=== PATIENT | male | born 1975 | race Two or more races ===

== ENCOUNTER 2025-01-29 09:41 | Inpatient (IN) | payer MEDICAID, OTHER ==
[~2025-01-29] VITALS: Ht 170.2 cm; Wt 70.6 kg
--- NOTE | 2025-01-29 10:02 | ED.PDOC ---
History of Present Illness HPI Comments 49 y.o male presents to the ED for admission to undergo surgery for a left arm fracture. Patient reports about one month ago had a mechanical slip and fall and landed on his left arm. Patient was sent by Dr. Bnun to be admitted to get surgery done on 02/02/25. Patient denies any pain at this time. Chief Complaint: Upper Extremity Time Seen by MD: 09:50 Reviewed Notes: Nurses Notes, Medications, Allergies Allergies: Coded Allergies: NO KNOWN ALLERGIES (Unverified , 01/29/25) Information Source: Patient Mode of Arrival: Wheelchair Severity: None Timing: Hours Duration: Since onset Past Medical History PAST MEDICAL HISTORY: Denies Surgical History (Other): left leg Family History Family History: Reviewed,noncontributory to illness Social History Smoker: Non-Smoker Alcohol: Denies ETOH Use Drugs: Denies Drug Use Lives In: Home Constitutional: denies: chills, diaphoresis, fatigue, fever, malaise, sweats, weakness, others EENTM: denies: blurred vision, double vision, ear bleeding, ear discharge, ear drainage, ear pain, ear ringing, eye pain, eye redness, hearing loss, mouth pain, mouth swelling, nasal discharge, nose bleeding, nose congestion, nose pain, photophobia, tearing, throat pain, throat swelling, voice changes, others Respiratory: denies: cough, hemoptysis, orthopnea, SOB at rest, shortness of breath, SOB with excertion, stridor, wheezing, others Cardiovascular: denies: chest pain, dizzy spells, diaphoresis, Dyspnea on exertion, edema, irregular heart beat, left arm pain, lightheadedness, palpitations, PND, syncope, others Gastrointestinal: denies: abdomen distended, abdominal pain, blood streaked bowels, constipated, diarrhea, dysphagia, difficulty swallowing, hematemesis, melena, nausea, poor appetite, poor fluid intake, rectal bleeding, rectal pain, vomiting, others Genitourinary: denies: burning, dysuria, flank pain, frequency, hematuria, incontinence, penile discharge, penile sore, pain, testicle pain, testicle sw elling, urgency, others Neurological: denies: dizziness, fainting, headache, left sided numbness, left sided weakness, numbness, paresthesia, pre-existing deficit, right sided numbness, right sided weakness, seizure, speech problems, tingling, tremors, weakness, others Musculoskeletal: denies: back pain, gout, joint pain, joint swelling, muscle pain, muscle stiffness, neck pain, others Integumetry: denies: bruises, change in color, change in hair/nails, dryness, laceration, lesions, lumps, rash, wounds, others Allergic/Immunocompromised: denies: Difficulty Healing, Frequent Infections, Hives, Itching, others Hematologic/Lymphatic: denies: anemia, blood clots, easy bleeding, easy bruising, swollen glands, others Endocrine: denies: excessive hunger, excessive sweating, excessive thirst, excessive urination, flushing, intolerance to cold, intolerance to heat, unexplained weight gain, unexplained weight loss, others Psychiatric: denies: anxiety, bipolar disorder, depression, hopeless, panic disorder, schizophrenia, sleepless, suicidal, others All Other Systems: Reviewed and Negative Physical Exam General Appearance: Moderate Distress HEENT: Normal ENT Inspection, Pharynx Normal, TMs Normal Neck: Full Range of Motion, Non-Tender, Normal, Normal Inspection Respiratory: Chest Non-Tender, Lungs Clear, No Accessory Muscle Use, No Respiratory Distress, Normal Breath Sounds Cardiovascular: No Edema, No JVD, No Murmur, No Gallop, Normal Peripheral Pulses, Regular Rate/Rhythm Breast Exam: Deferred Gastrointestinal: No Organomegaly, Non Tender, No Pulsatile Mass, Normal Bowel Sounds, Soft Genitalia: Deferred Pelvic: Deferred Rectal: Deferred Extremities: Other (Left lower extremity halo) Musculoskeletal : Apperance: Normal Neurologic: Alert, No Motor Deficits, No Sensory Deficits Cerebellar Function: NOT DONE Reflexes: NOT DONE Skin: Dry, Normal Color, Warm Peripheral Pulses: 3+ Radial (R), 3+ Radial (L) Lymphatic: No Adenopathy Was a procedure done? Was a procedure done?: No Differential Dx Considerations may include: Muscle strain X-Ray, Labs, Meds, VS Vital Signs Date Time Temp Pulse Resp B/P (MAP) Pulse Ox O2 Delivery O2 Flow Rate FiO2 01/29/25 10:21 97.9 78 18 127/95 (106) 98 97.9 01/29/25 10:21 78 18 98 Room Air 01/29/25 09:43 97.6 72 16 145/99 97 97.6 Lab Test 01/29/25 10:15 Range/Units White Blood Count 6.7 4.4-10.8 10^3/uL Red Blood Count 4.81 4.5-5.90 10^6/uL Hemoglobin 14.1 13.5-17.5 g/dL Hematocrit 41.2 41.0-53.0 % Mean Corpuscular Volume 85.7 80.0-100.0 fL Mean Corpuscular Hemoglobin 29.4 28.0-32.0 pg Mean Corpuscular Hemoglobin Concent 34.3 32.0-36.0 g/dL Red Cell Distribution Width 14.9 H 11.8-14.3 % Platelet Count 358 140-450 10^3/uL Mean Platelet Volume 6.7 L 6.9-10.8 fL Neutrophils (%) (Auto) 55.4 37.0-80.0 % Lymphocytes (%) (Auto) 37.1 10.0-50.0 % Monocytes (%) (Auto) 3.9 0.0-12.0 % Eosinophils (%) (Auto) 2.8 0.0-7.0 % Basophils (%) (Auto) 0.8 0.0-2.0 % Neutrophils # (Auto) 3.7 1.6-8.6 10 ^3/uL Lymphocytes # (Auto) 2.5 0.4-5.4 10 ^3/uL Monocytes # (Auto) 0.3 0-1.3 10 ^3/uL Eosinophils # (Auto) 0.2 0-0.8 10 ^3/uL Basophils # (Auto) 0.1 0-0.2 10 ^3/uL Nucleated Red Blood Cells 0.0 % Prothrombin Time 10.9 9.3-11.8 sec Prothrombin Time INR 1.03 0.9-1.15 Activated Partial Thromboplast Time 28.5 24.5-34.5 SEC Sodium Level 141 136-145 mmol/L Potassium Level 4.0 3.5-5.1 mmol/L Chloride Level 104 98-107 mmol/L Carbon Dioxide Level 26 20-31 mmol/L Anion Gap 11 5-15 Blood Urea Nitrogen 12 9-23 mg/dL Creatinine 0.88 0.700-1.30 mg/dL Glomerular Filtration Rate Calc 105 >90 mL/min BUN/Creatinine Ratio 13.6 10.0-20.0 Serum Glucose 111 H 74-106 mg/dL Calcium Level 9.5 8.7-10.4 mg/dL Patient alert. He is here for fixation of the left forearm. Vitals stable. Answering questions. WBC within normal limits. Hemoglobin within normal limits. Orthopedic surgeon wanted to revise the bone. Continue monitoring. Time of 1ST Reevaluation: 10:02 Reevaluation 1ST: Unchanged Patient Education/Counseling: Diagnosis, Treatment, Prognosis Family Education/Counseling: No Family Present SEPSIS Sepsis Screen Date sepsis recognized/suspect: Jan 29, 2025 Time Sepsis recognized/suspect: 942 Recent Procedure: No On Antibiotic Therapy: No Respiratory Rate >20: No Heart Rate >90: No Temp<36 C (96.8 F) or >38.3 C: No SBP <90 or MAP <65 mmHG: No New Acute Mental Status Change: No Is the patient on CPAP, BIPAP,: No Vital Signs Date Time Temp Pulse Resp B/P (MAP) Pulse Ox O2 Delivery O2 Flow Rate FiO2 01/29/25 10:21 97.9 78 18 127/95 (106) 98 97.9 01/29/25 10:21 78 18 98 Room Air 01/29/25 09:43 97.6 72 16 145/99 97 97.6 Laboratory Tests Test 01/29/25 10:15 White Blood Count 6.7 10^3/uL (4.4-10.8) Departure 1 Departure Time of Disposition: 11:11 Impression: Primary Impression: Forearm fracture Qualified Codes: S52.92XA - Unspecified fracture of left forearm, initial encounter for closed fracture Disposition: ADMITTED INPATIENT Admit to: Med Surg Condition: Guarded Critical Care Note Critical Care Time?: No Stability Stability form required: No I personally scribed for SHELLY AZEVEDO MD ([email or web address]) on 01/29/25 at 10:02. Electronically submitted by Diane Figueroa ([facility]). SHELLY AZEVEDO MD Jan 29, 2025 10:02
[2025-01-29 10:31] LABS: Hematocrit 41.2 % (41.0-53.0); Hemoglobin 14.1 g/dL (13.5-17.5); Mean Corpuscular Hemoglobin 29.4 pg (28.0-32.0); Mean Corpuscular Volume 85.7 fL (80.0-100.0); Nucleated Red Blood Cells % 0.0 %
[2025-01-29 10:34] LABS: Chloride 104 mmol/L (98-107); Potassium 4.0 mmol/L (3.5-5.1); Sodium 141 mmol/L (136-145)
[2025-01-29 10:35] LABS: Anion Gap 11 (5-15); Carbon Dioxide 26 mmol/L (20-31)
[2025-01-29 10:36] LABS: Calcium 9.5 mg/dL (8.7-10.4)
[2025-01-29 10:41] LABS: BUN/Creatinine Ratio 13.6 (10.0-20.0); Blood Urea Nitrogen 12 mg/dL (9-23); Glucose 111 mg/dL (74-106)
[2025-01-29 11:05] LABS: INR 1.03 (0.9-1.15); Partial Thromboplastin Time 28.5 SEC (24.5-34.5); Prothrombin Time 10.9 sec (9.3-11.8)
[2025-01-29] MEDS ORDERED: HYDROmorphone HCL 2 MG/ML VL/or syr IV PRN (13:15)
--- NOTE | 2025-01-29 13:18 | DVHHP2 ---
History of Present Illness History of Present Illness Patient is 49-year-old male who came to the hospital for evaluation of his left wrist fracture. As per patient he was getting out of bathroom, fell down on his left arm on 10 January.. Patient came to the hospital for further evaluation requiring possible surgery on left wrist for left wrist fracture. Past medical history: None Surgical history: Left foot surgery on July 13, 2024 Family history: Noncontributory Social history: Noncontributory Allergies: Denies Home medication: Patient does not take any medication Review of Systems Constitutional: No: Fever, Chills, Sweats, Weakness, Malaise, Other Eyes: No: Pain, Vision change, Conjunctivae inflammation, Eyelid inflammation, Other, Redness ENT: No: Ear pain, Ear discharge, Nose pain, Nose discharge, Nose congestion, Mouth pain, Mouth swelling, Throat pain, Throat swelling, Other Respiratory: No: Cough, Dry, Shortness of breath, SOB with excertion, Wheezing, Hemoptysis, Pleuritic Pain, Sputum, Wheezing, Other Cardiovascular: No: Chest Pain, Palpitations, Orthopnea, Paroxysmal Noc. Dyspnea, Edema, Lt Headedness, Other Gastrointestinal: No: Nausea, Vomiting, Abdominal Pain, Diarrhea, Constipation, Melena, Hematochezia, Other Genitourinary: No Dysuria, No Frequency, No Incontinence, No Hematuria, No Retention, No Other Musculoskeletal: hand pain, leg pain Skin: No: Rash, Lesions, Jaundice, Bruising, Other Neurological: No: Weakness, Numbness, Incoordination, Change in speech, Confusion, Seizures, Other Allergies: Coded Allergies: NO KNOWN ALLERGIES (Unverified , 01/29/25) Medications Current Medications Medications Dose Ordered Sig/Marc Route Start Time Stop Time Status Last Admin Dose Admin Acetaminophen/ Hydrocodone Bitart 1 tab Q4HP PRN PO 01/29/25 13:15 UNV Hydromorphone HCl 0.5 mg Q4HP PRN IV 01/29/25 13:15 UNV Pantoprazole Sodium 40 mg DAILY IV 01/30/25 10:00 UNV Exam Vital Signs Vital Signs Date Time Temp Pulse Resp B/P (MAP) Pulse Ox O2 Delivery O2 Flow Rate FiO2 01/29/25 10:21 97.9 78 18 127/95 (106) 98 97.9 01/29/25 10:21 Room Air Exam General Appearance: Cooperative. Well developed. Well nourished. NAD Head Exam: Normal inspection Neck Exam: Normal inspection. Non-tender. Normal alignment Pulmonary/Respiratory: Chest non-tender. Clear bilateral breath sounds Cardiovascular/Chest: Regular rate and rhythm. No murmurs. No JVD. Peripheral Pulses: 2+ Radial (R). 2+ Radial (L). 2+ Pedal (R). 2+ Pedal (L) Abdominal Exam: Normal bowel sounds. Soft. Nontender. No hepatospenomegaly. No masses Ankle Exam: Negative ankle edema Lower extremities: Left foot with multiple she had rods for fixation of food. Left wrist swollen with tenderness, limited range of motion of left wrist Neuro/Mental Status: A&O x4. Coherent Thoughts/Psych: Normal thought pattern. Appropriate mood and affect. Good judgement and insight Appearance: In no acute distress Skin Exam: Normal inspection. Normal color. Warm. Dry Labs/Xrays Labs Test 01/29/25 10:15 Range/Units White Blood Count 6.7 4.4-10.8 10^3/uL Red Blood Count 4.81 4.5-5.90 10^6/uL Hemoglobin 14.1 13.5-17.5 g/dL Hematocrit 41.2 41.0-53.0 % Mean Corpuscular Volume 85.7 80.0-100.0 fL Mean Corpuscular Hemoglobin 29.4 28.0-32.0 pg Mean Corpuscular Hemoglobin Concent 34.3 32.0-36.0 g/dL Red Cell Distribution Width 14.9 H 11.8-14.3 % Platelet Count 358 140-450 10^3/uL Mean Platelet Volume 6.7 L 6.9-10.8 fL Neutrophils (%) (Auto) 55.4 37.0-80.0 % Lymphocytes (%) (Auto) 37.1 10.0-50.0 % Monocytes (%) (Auto) 3.9 0.0-12.0 % Eosinophils (%) (Auto) 2.8 0.0-7.0 % Basophils (%) (Auto) 0.8 0.0-2.0 % Neutrophils # (Auto) 3.7 1.6-8.6 10 ^3/uL Lymphocytes # (Auto) 2.5 0.4-5.4 10 ^3/uL Monocytes # (Auto) 0.3 0-1.3 10 ^3/uL Eosinophils # (Auto) 0.2 0-0.8 10 ^3/uL Basophils # (Auto) 0.1 0-0.2 10 ^3/uL Nucleated Red Blood Cells 0.0 % Prothrombin Time 10.9 9.3-11.8 sec Prothrombin Time INR 1.03 0.9-1.15 Activated Partial Thromboplast Time 28.5 24.5-34.5 SEC Sodium Level 141 136-145 mmol/L Potassium Level 4.0 3.5-5.1 mmol/L Chloride Level 104 98-107 mmol/L Carbon Dioxide Level 26 20-31 mmol/L Anion Gap 11 5-15 Blood Urea Nitrogen 12 9-23 mg/dL Creatinine 0.88 0.700-1.30 mg/dL Glomerular Filtration Rate Calc 105 >90 mL/min BUN/Creatinine Ratio 13.6 10.0-20.0 Serum Glucose 111 H 74-106 mg/dL Calcium Level 9.5 8.7-10.4 mg/dL SEPSIS Sepsis Screen Date sepsis recognized/suspect: Jan 29, 2025 Time Sepsis recognized/suspect: 09 Recent Procedure: No On Antibiotic Therapy: No Respiratory Rate >20: No Heart Rate >90: No Temp<36 C (96.8 F) or >38.3 C: No SBP <90 or MAP <65 mmHG: No New Acute Mental Status Change: No Is the patient on CPAP, BIPAP,: No Physician Orders Admit (01/29/25 13:12) Code Status (01/29/25 13:12) Vital Signs .PER UNIT PROTOCOL (01/29/25 13:12) Review Orders With Adm.Md (01/29/25 13:12) Notify Md Of Changes From Base (01/29/25 13:12) Advance Directive (01/29/25 13:12) Urinalysis (01/29/25 13:12) Patient Condition (01/29/25 13:12) Allergies (01/29/25 13:12) Hydrocodone-Acet 5/325mg Tab ([place] 5/32 (01/29/25 13:15) Hydromorphone Injection (Dilaudid Inject (01/29/25 13:15) Drug Screen (01/29/25 13:12) Hemoglobin A1c (01/29/25 13:12) Npo After Midnight (01/29/25 13:12) Npo (Nothing By Mouth) Diet (01/30/25 Breakfast) Thyroid Stimulating Hormone (01/29/25 13:12) Electrocardigram (01/29/25 13:12) L Wrist 3+ View Xray (01/29/25 13:16) *Consult Dr. Alen Acosta (01/29/25 13:16) Pantoprazole (Protonix) (01/30/25 10:00) Pantoprazole Tablet (Protonix Tablet) (01/29/25 13:30) Vital Signs Date Time Temp Pulse Resp B/P (MAP) Pulse Ox O2 Delivery O2 Flow Rate FiO2 01/29/25 10:21 97.9 78 18 127/95 (106) 98 97.9 01/29/25 10:21 78 18 98 Room Air 01/29/25 09:43 97.6 72 16 145/99 97 97.6 Laboratory Tests Test 01/29/25 10:15 White Blood Count 6.7 10^3/uL (4.4-10.8) Assessment/Plan Assessment/Plan Mildly displaced distal radius and ulna styloid fracture BMI 25.0 kg/meters squared Recent history of tibial fracture. Status post surgery. July 2024 Plan/recommendation -left wrist x-ray: Mildly displaced distal radius and ulna styloid fracture. -orthopedic consultation -pain management -preop clearance -NPO after midnight -PUD prophylaxis with Protonix Goals of care discussed greater than 23 hours, full code status Plan discussed with Dr. Gutierrez Plan discussed with: Patient, Other My Orders Orders - JC HUITRON RESIDENT Procedure Category Date Status Time Admit ADMIT 01/29/25 Transmitted 13:12 Code Status CODE 01/29/25 Transmitted 13:12 Vital Signs BRANDEN 01/29/25 In Process 13:12 Review Orders With BRANDEN 01/29/25 In Process Adm. 13:12 Notify Of Changes BRANDEN 01/29/25 In Process From Base 13:12 Advance Directive BRANDEN 01/29/25 In Process 13:12 Urinalysis LAB 01/29/25 Logged 13:12 Patient Condition ORDERS 01/29/25 Transmitted 13:12 Allergies BRANDEN 01/29/25 In Process 13:12 Hydrocodone-Acet PHA 01/29/25 Logged 5/325mg Tab ([place] 13:15 Hydromorphone PHA 01/29/25 Logged Injection (Dilaudid 13:15 Drug Screen LAB 01/29/25 Logged 13:12 Hemoglobin A1c LAB 01/29/25 Logged 13:12 Npo After Midnight BRANDEN 01/29/25 In Process 13:12 Npo (Nothing By DIET 01/30/25 Transmitted Mouth) Diet Breakfast Thyroid Stimulating LAB 01/29/25 Logged Hormone 13:12 Electrocardigram EKG 01/29/25 Logged 13:12 L Wrist 3+ View Xray XY 01/29/25 Logged 13:16 *Consult Dr. Lowry CONS 01/29/25 Transmitted Dave 13:16 Pantoprazole PHA 01/30/25 Transmitted (Protonix) 10:00 Pantoprazole Tablet PHA 01/29/25 Transmitted (Protonix Tablet) 13:30 Date of Service: Jan 29, 2025 Billing Provider: VARUN GUTIERREZ MD Common Visit Codes: [id number] INP/OBS CARE (HIGH) Secondary Visit Codes: [id number] CARE PLAN 30 MINUTES JC HUITRON RESIDENT Jan 29, 2025 13:18
[2025-01-29 13:27] VITALS: PULSE 80; RESP 18; O2SAT 96
[2025-01-29] MEDS: PANTOPRAZOLE 40 MG TAB PO ONE (13:42)
--- NOTE | 2025-01-29 14:01 | DVH ---
XY L WRIST 3+ VIEW XRAY, INDICATION: fracture TECHNICAL DATA: Frontal ,oblique, and lateral views were obtained of the left wrist. COMPARISON: XR WRIST COMPLETE LT on DOS: 01/10/25 FINDINGS: Mildly displaced distal radius and ulna styloid fracture. Joint spaces are maintained. Alignment is a natomic. Ulnar variance is positive. Soft tissues are within normal limits. A splint limits details. IMPRESSION: Mildly displaced distal radius and ulna styloid fracture.
[2025-01-29 16:32] LABS: INR 1.05 (0.9-1.15); Partial Thromboplastin Time 29.5 SEC (24.5-34.5); Prothrombin Time 11.1 sec (9.3-11.8)
[2025-01-29 21:24] LABS: Urine Protein, UAD Negative (Negative)
--- NOTE | 2025-01-29 21:24 | DVH ---
CLINICAL INDICATION: fracture TECHNIQUE: XY L ANKLE 3 VIEW Comparison: None FINDINGS/IMPRESSION: : Evaluation is limited due to external hardware limiting evaluation. There are 2 partially threaded screws through the talus. Comminuted fracture of the distal fibula and mildly displaced fracture of the distal tibia. Bony demineralization. Ankle mortise appears intact.
[2025-01-29 21:25] LABS: Amphetamine Screen, Urine Neg (NEGATIVE); Barbiturate Scree,Urine Neg (NEGATIVE); Benzodiazephine Screen, Urine Neg (NEGATIVE); Cannabinoid Screen, Urine Neg (NEGATIVE); Cocaine Screen, Urine Neg (NEGATIVE); Opiate Scree,Urine Neg (NEGATIVE); Phencyclidine Screen, Urine Neg (NEGATIVE)
--- NOTE | 2025-01-29 21:30 | DVH ---
EXAM: XY CHEST XRAY 1 VIEW CLINICAL HISTORY: cad TECHNIQUE: Single AP view of the chest WID: COMPARISON: None FINDINGS: Lines and tubes: None Chest: The heart size and pulmonary vasculature is within normal limits. Calcified plaque projects over the aortic arch. No pleural effusion, pneumothorax, or consolidation. The osseous structures are grossly intact. Multilevel thoracic spondylosis. IMPRESSION: 1. No acute cardiopulmonary abnormality.
[2025-01-29 22:36] VITALS: PULSE 94; RESP 16; O2SAT 94
[2025-01-30] VITALS (7 sets, daily range): BP systolic 123–131; BP diastolic 83–94; PULSE 76–107; RESP 16–20; TEMP 97.9–98.8; O2SAT 95–98
[2025-01-30] MEDS: SODIUM CHLORIDE 0.9% 1,000 ML IV SCH (00:14)
[2025-01-30] MEDS: LIDOCAINE 1% HCL (LOCAL ANESTH.) INJ 20ML MDV ONE ×2 (08:12→10:19)
[2025-01-30] MEDS: BUPIVACAINE 0.25% INJ 50ML VIAL ONE ×2 (08:12→10:19)
[2025-01-30] MEDS: ceFAZolin 2 GM/D5W50ml 50 ML IV ONE (08:33)
[2025-01-30] MEDS: PANTOPRAZOLE 40 MG/10 ML VIAL INJ IV SCH (10:00)
[2025-01-30] MEDS ORDERED: MEPERIDINE HCL (25 MG/ML) 1ML VIAL ONE (10:16)
[2025-01-30] MEDS ORDERED: MIDAZOLAM HCL 2MG/2ML 2ml VIAL (1mg/ml) ONE (10:16)
[2025-01-30] MEDS ORDERED: PROPOFOL 10 MG/ML 20 ML IV ONE (10:33)
[2025-01-30] MEDS ORDERED: fentaNYL CITRATE 100 MCG/2 ML VL ONE (10:35)
[2025-01-30] MEDS ORDERED: hydrALAZINE HCL 20 MG/ML VL IV PRN (11:45)
[2025-01-30] MEDS ORDERED: ONDANSETRON HCL 4 MG/2 ML VIAL IV PRN ×2 (11:45→12:45)
[2025-01-30] MEDS: KETOROLAC TROMETH 30 MG/ML 1ML VIAL IV ONE (11:45)
[2025-01-30] MEDS ORDERED: MIDAZOLAM HCL 2MG/2ML 2ml VIAL (1mg/ml) IV PRN (11:45)
[2025-01-30] MEDS ORDERED: MORPHINE SULFATE 4 MG/ML SYR/VIAL IV PRN (11:45)
--- NOTE | 2025-01-30 11:45 | DVH ---
CLINICAL INDICATION: LEFT WRIST ORIF TECHNIQUE: 5 radiographic views of the surgery on left wrist were obtained. Comparison: XY L WRIST 3+ VIEW XRAY on DOS: 01/29/25 FINDINGS/IMPRESSION: ORIF left wrist distal radius. Total fluoro time 6.8 seconds Cumulative dose: 0.13 mGy
--- NOTE | 2025-01-30 12:00 | DVH ---
FLUOROSCOPY TIME: 7 seconds TECHNIQUE: Intraoperative radiographs of the left wrist were obtained. COMPARISON: XY L WRIST 2 VIEW XRAY on DOS: 01/30/25, XY L WRIST 3+ VIEW XRAY on DOS: 01/29/25, XR WRI ST COMPLETE LT on DOS: 01/10/25 FINDINGS: Refer to intraoperative report for further evaluation. IMPRESSION: Refer to intraoperative report for further evaluation.
[2025-01-30] MEDS: HYDROmorphone HCL 2 MG/ML VL/or syr IV PRN (12:34)
--- NOTE | 2025-01-30 12:39 | DVHPN2 ---
Progress Note Date Seen: Jan 30, 2025 Medical Necessity Reason Pt with a Central, PICC or Fol: No Subjective Patient reports: No new complaints Review of Systems: HEENT:Normal, CVS:Normal, RESPIRATORY:Normal, GI:Normal, :Normal, MSK:Normal, NEURO:Normal Objective vital signs Vital Sign Date Time Temp Pulse Resp B/P (MAP) Pulse Ox O2 Delivery O2 Flow Rate FiO2 01/30/25 07:30 81 17 98 Room Air* 0 21 01/30/25 07:30 98.0 121/86 (98) 98.0 Total Intake and Output 01/29/25 01/29/25 01/30/25 15:00 23:00 07:00 Intake Total 300 ml Output Total 200 ml Balance 100 ml medications Current Medications Medications Dose Ordered Sig/Marc Route Start Time Stop Time Status Last Admin Dose Admin Acetaminophen/ Hydrocodone Bitart 1 tab Q4HP PRN PO 01/29/25 13:15 Hydromorphone HCl 0.5 mg Q4HP PRN IV 01/29/25 13:15 Pantoprazole Sodium 40 mg DAILY IV 01/30/25 10:00 Sodium Chloride 1,000 ml @ 100 mls/hr Q10H IV 01/29/25 23:50 01/30/25 00:14 100 MLS/HR Cefazolin Sodium 50 ml @ 100 mls/hr Q8HR IV 01/30/25 14:00 01/31/25 06:29 Examination: GENERAL:Normal, HEENT:Normal, NECK:Normal, LUNGS:Normal, CVS:Normal, ABDOMEN:Normal, MSK:Normal, MSK:Abnormal (LEFT FOREARM DRESSING), SKIN:Normal, NEURO:Normal, :Normal laboratory and microbiology Laboratory Tests 01/29/25 10:15 Test 01/29/25 10:15 Range/Units Serum Glucose 111 H 74-106 mg/dL Problem List/Assessment/Plan Problem List/Assessment/Plan #1 left wrist fracture s/p surgery: ivf, pain meds Plan discussed with: Patient My Orders My Orders Orders - OPAL MARION MD Procedure Category Date Status Time Ondansetron Hcl PHA 01/30/25 Transmitted (Zofran) 12:45 Basic Metabolic Panel LAB 01/31/25 Verified 06:00 Complete Blood Count LAB 01/31/25 Verified 06:00 Date of Service: Jan 30, 2025 Billing Provider: OPAL MARION MD Common Visit Codes: [id number] INP/OBS CARE(HIGH) OPAL MARION MD Jan 30, 2025 12:39
[2025-01-30] MEDS: ceFAZolin 1GM/50ML 50 ML IV SCH (15:57)
[2025-01-30] MEDS: HYDROcodone-ACET 5/325MG TAB PO PRN (21:27)
[2025-01-31] VITALS (8 sets, daily range): BP systolic 121–143; BP diastolic 86–101; PULSE 65–77; RESP 16–18; TEMP 97.6–98.4; O2SAT 96–99
[2025-01-31 06:07] LABS: Hematocrit 38.7 % (41.0-53.0); Hemoglobin 13.3 g/dL (13.5-17.5); Mean Corpuscular Hemoglobin 29.4 pg (28.0-32.0); Mean Corpuscular Volume 85.4 fL (80.0-100.0); Nucleated Red Blood Cells % 0.1 %
[2025-01-31 06:21] LABS: Anion Gap 8 (5-15); Calcium 9.5 mg/dL (8.7-10.4); Carbon Dioxide 27 mmol/L (20-31); Chloride 103 mmol/L (98-107); Potassium 4.8 mmol/L (3.5-5.1); Sodium 138 mmol/L (136-145)
[2025-01-31 06:27] LABS: BUN/Creatinine Ratio 14.6 (10.0-20.0); Blood Urea Nitrogen 12 mg/dL (9-23); Glucose 153 mg/dL (74-106)
--- NOTE | 2025-01-31 08:23 | DVHPN2 ---
Progress Note Date Seen: Jan 31, 2025 Medical Necessity Reason Pt with a Central, PICC or Fol: No Subjective Patient reports: No new complaints Objective vital signs Vital Sign Date Time Temp Pulse Resp B/P (MAP) Pulse Ox O2 Delivery O2 Flow Rate FiO2 01/31/25 05:00 97.6 67 18 132/88 (103) 99 97.6 01/30/25 20:00 Room Air* 0 21 Total Intake and Output 01/30/25 01/30/25 01/31/25 15:00 23:00 07:00 Intake Total 100 ml 450 ml 450 ml Balance 100 ml 450 ml 450 ml medications Current Medications Medications Dose Ordered Sig/Marc Route Start Time Stop Time Status Last Admin Dose Admin Acetaminophen/ Hydrocodone Bitart 1 tab Q4HP PRN PO 01/29/25 13:15 01/30/25 21:27 1 TAB Hydromorphone HCl 0.5 mg Q4HP PRN IV 01/29/25 13:15 Pantoprazole Sodium 40 mg DAILY IV 01/30/25 10:00 Sodium Chloride 1,000 ml @ 100 mls/hr Q10H IV 01/29/25 23:50 01/31/25 05:37 100 MLS/HR Ondansetron HCl 4 mg Q6HPRN PRN IV 01/30/25 12:45 Examination: GENERAL:Normal, MSK:Abnormal laboratory and microbiology Laboratory Tests 01/31/25 05:24 Test 01/31/25 05:24 Range/Units Serum Glucose 153 H 74-106 mg/dL Problem List/Assessment/Plan Problem List/Assessment/Plan 49 year old male who is s/p ORIF left wrist POD 1 1. Pain control 2. Splint to remain in place 3. NWB LUE 4. Dr. Acosta inquiring with local reps to determine if it is possible to remove curent external fixator placed by outside provider July 2024 5. Recommending holding discharge until we can determine if surgery for left lower leg is possible as patient has requested it be removed this hospital stay if possible Plan discussed with: Patient Date of Service: Jan 31, 2025 Billing Provider: SAM ACOSTA MD Common Visit Codes: NOT BILLABLE UMU BALLARD NP Jan 31, 2025 08:23
--- NOTE | 2025-01-31 11:46 | DVHPN2 ---
Progress Note Date Seen: Jan 31, 2025 Medical Necessity Reason Pt with a Central, PICC or Fol: No Subjective Patient reports: No new complaints Review of Systems: HEENT:Normal, CVS:Normal, RESPIRATORY:Normal, GI:Normal, :Normal, MSK:Normal, NEURO:Normal Objective vital signs Vital Sign Date Time Temp Pulse Resp B/P (MAP) Pulse Ox O2 Delivery O2 Flow Rate FiO2 01/31/25 08:45 97.6 65 16 132/89 (103) 99 97.6 01/30/25 20:00 Room Air* 0 21 Total Intake and Output 01/30/25 01/30/25 01/31/25 15:00 23:00 07:00 Intake Total 100 ml 450 ml 450 ml Balance 100 ml 450 ml 450 ml medications Current Medications Medications Dose Ordered Sig/Marc Route Start Time Stop Time Status Last Admin Dose Admin Acetaminophen/ Hydrocodone Bitart 1 tab Q4HP PRN PO 01/29/25 13:15 01/31/25 10:35 1 TAB Hydromorphone HCl 0.5 mg Q4HP PRN IV 01/29/25 13:15 Pantoprazole Sodium 40 mg DAILY IV 01/30/25 10:00 01/31/25 10:35 40 MG Sodium Chloride 1,000 ml @ 100 mls/hr Q10H IV 01/29/25 23:50 01/31/25 05:37 100 MLS/HR Ondansetron HCl 4 mg Q6HPRN PRN IV 01/30/25 12:45 Examination: GENERAL:Normal, HEENT:Normal, NECK:Normal, LUNGS:Normal, CVS:Normal, ABDOMEN:Normal, MSK:Normal, MSK:Abnormal (left wrist dressing, right ankle fixator), SKIN:Normal, NEURO:Normal, :Normal laboratory and microbiology Laboratory Tests 01/31/25 05:24 Test 01/31/25 05:24 Range/Units Serum Glucose 153 H 74-106 mg/dL Problem List/Assessment/Plan Problem List/Assessment/Plan #1 left wrist fracture s/p surgery: ivf, pain meds #2 left ankle fracture/fixator: await ortho plan Plan discussed with: Patient My Orders My Orders Orders - OPAL MARION MD Procedure Category Date Status Time Ondansetron Hcl PHA 01/30/25 In Process (Zofran) 12:45 Initiate Vte BRANDEN 01/31/25 In Process Prophylaxis 03:06 Date of Service: Jan 31, 2025 Billing Provider: OPAL MARION MD Common Visit Codes: [id number] INP/OBS CARE(HIGH) OPAL MARION MD Jan 31, 2025 11:46
[2025-01-31] MEDS: SODIUM CHLORIDE 0.9% 1,000 ML IV SCH (14:56)
[2025-02-01] VITALS (7 sets, daily range): BP systolic 116–149; BP diastolic 82–103; PULSE 68–96; RESP 16–18; TEMP 36.6; O2SAT 95–98
[2025-02-01] MEDS: PANTOPRAZOLE 40 MG TAB PO SCH (05:40)
[2025-02-01] MEDS ORDERED: HYDR1TAB97 PO (11:32)
--- NOTE | 2025-02-01 11:33 | DVHDS2 ---
Discharge Summary Date of Admission Jan 29, 2025 at 13:12 Date of Discharge: Feb 01, 2025 Labs/Diagnostic Data: Laboratory Results Test 01/31/25 05:24 01/29/25 16:09 01/29/25 13:31 01/29/25 10:15 White Blood Count 13.1 10^3/uL (4.4-10.8) Red Blood Count 4.54 10^6/uL (4.5-5.90) Hemoglobin 13.3 g/dL (13.5-17.5) Hematocrit 38.7 % (41.0-53.0) Mean Corpuscular Volume 85.4 fL (80.0-100.0) Mean Corpuscular Hemoglobin 29.4 pg (28.0-32.0) Mean Corpuscular Hemoglobin Concent 34.5 g/dL (32.0-36.0) Red Cell Distribution Width 14.7 % (11.8-14.3) Platelet Count 334 10^3/uL (140-450) Mean Platelet Volume 7.2 fL (6.9-10.8) Neutrophils (%) (Auto) 83.2 % (37.0-80.0) Lymphocytes (%) (Auto) 12.2 % (10.0-50.0) Monocytes (%) (Auto) 4.5 % (0.0-12.0) Eosinophils (%) (Auto) 0.0 % (0.0-7.0) Basophils (%) (Auto) 0.1 % (0.0-2.0) Neutrophils # (Auto) 10.9 10 ^3/uL (1.6-8.6) Lymphocytes # (Auto) 1.6 10 ^3/uL (0.4-5.4) Monocytes # (Auto) 0.6 10 ^3/uL (0-1.3) Eosinophils # (Auto) 0 10 ^3/uL (0-0.8) Basophils # (Auto) 0 10 ^3/uL (0-0.2) Nucleated Red Blood Cells 0.1 % Sodium Level 138 mmol/L (136-145) Potassium Level 4.8 mmol/L (3.5-5.1) Chloride Level 103 mmol/L (98-107) Carbon Dioxide Level 27 mmol/L (20-31) Anion Gap 8 (5-15) Blood Urea Nitrogen 12 mg/dL (9-23) Creatinine 0.82 mg/dL (0.700-1.30) Glomerular Filtration Rate Calc 107 mL/min (>90) BUN/Creatinine Ratio 14.6 (10.0-20.0) Serum Glucose 153 mg/dL (74-106) Calcium Level 9.5 mg/dL (8.7-10.4) Prothrombin Time 11.1 sec (9.3-11.8) Prothrombin Time INR 1.05 (0.9-1.15) Activated Partial Thromboplast Time 29.5 SEC (24.5-34.5) Urine Color Light-yellow (Yellow) Urine Clarity Clear (Clear) Urine pH 5.0 (5.0-9.0) Urine Specific [place] 1.020 (1.001-1.035) Urine Protein Negative (Negative) Urine Ketones Negative (Negative) Urine Blood Negative /uL (Negative) Urine Nitrite Negative (Negative) Urine Bilirubin Negative (Negative) Urine Urobilinogen Normal mg/dL (Negative) Urine Leukocyte Esterase Negative /uL (Negative) Urine RBC <1 /hpf (0 - 3) Urine Microscopic WBC < 1 /HPF (0-3) Urine Squamous Epithelial Cells None seen /hpf (<5) Urine Bacteria None seen /hpf (None Seen) Urine Mucus Few (None Seen) Urine Glucose Normal mg/dL (Normal) Urine Opiates Screen Neg (NEGATIVE) Urine Fentanyl Screen Neg (NEGATIVE) Urine Barbiturates Screen Neg (NEGATIVE) Urine Phencyclidine Screen Neg (NEGATIVE) Urine Amphetamines Screen Neg (NEGATIVE) Urine Benzodiazepines Screen Neg (NEGATIVE) Urine Cocaine Screen Neg (NEGATIVE) Urine Cannabinoids Screen Neg (NEGATIVE) Hemoglobin A1c 5.4 % A1C (<5.7) Thyroid Stimulating Hormone (TSH) 1.48 uIU/mL (0.55-4.78) Other Laboratory Tests 01/31/25 05:24 Brief Hx & Hospital Course: see dictated note Condition at Discharge: Fair Final Diagnosis/Problems List left wrist fracture Discharge Disposition: Home Discharge Instruct/Medications Diet: Regular Activity: No Restrictions, As Tolerated Follow Up/Referral: fu with ortho in 2 wks Medications: resume home meds script to pharmacy Scheduled PRN Hydrocodone-Acetaminophen (Hydrocodone/Acetaminophen 5-325 mg), 1 TAB PO TIDP PRN Discharge Statement: "Patient was advised to return to the ER or call 911 if any headaches, dizziness, shortness of breath, chest pain, abdominal pain, bleeding, fevers, or worsening of medical condition. Patient was counseled about treatment plan, medications, possible side effects, patientverbalized understanding. All questions were answered to the best of my ability. This discharge took greater then 30 minutes in planning, reviewing documentation, counseling the patient, and discussing with other team members." ASSESSMENT ASSESSMENT Assessment left wrist fracture Date of Service: Feb 01, 2025 Billing Provider: OPAL MARION MD Common Visit Codes: 56013-FKC/OBS DISCH DAY >30min OPAL MARION MD Feb 01, 2025 11:33
--- NOTE | 2025-02-01 11:42 | DVHDS ---
DATE OF DISCHARGE: 02/01/2025 HISTORY OF PRESENT ILLNESS: The patient is a 49-year-old gentleman who was admitted with fall and likely left wrist fracture. The patient has had previous left ankle fracture and foot surgery in July. HOSPITAL COURSE: The patient had a wrist x-ray that showed a mildly displaced distal radius and ulnar styloid fracture. The patient had an ankle x-ray that showed comminuted distal fibula fracture with threaded screws. He underwent surgery on 01/30/2025. The patient has now been cleared for discharge. He will be discharged home to resume his home medications as well as to be on [place] p.r.n. for pain. FINAL DIAGNOSES: * Left wrist fracture status post surgery. * History of left ankle fracture with fixator placement. Time spent in discharge planning and review of plan with the patient and nursing was 36 minutes. MD COURTNEY Donato/JOHNATHAN TID: [id number] RECEIPT: [id number]
--- NOTE | 2025-02-02 14:17 | DVHINCON2 ---
Date of service: Jan 29, 2025 Reason for Consultation Left distal radius fracture History of Present Illness 49 Yo M sp mechanical trip and fall and landed onto outstretched left arm - immediate pain/swelling/inability to bear weight; hx of ORIF Left tibia fracture at [facility] 2.5 months ago - has not seen ortho since that time Past Medical History denies Family History: Patient reports no known family medical history. Allergies: Coded Allergies: NO KNOWN ALLERGIES (Unverified , 01/29/25) Home Meds Active Scripts Hydrocodone-Acetaminophen (Hydrocodone/Acetaminophen 5-325 mg) 1 Tab Tab, 1 TAB PO TIDP PRN for 10 Days, #30 TAB Prov:OPAL MARION MD 02/01/25 Review of Systems 10 point ROS neg except per HPI Vital Signs Vital Signs Date Time Temp Pulse Resp B/P (MAP) Pulse Ox O2 Delivery O2 Flow Rate FiO2 02/01/25 16:54 98.2 90 16 123/93 (103) 98 98.2 02/01/25 08:00 Room Air* 0 21 Physical Exam NAD LUE: +swelling at wrist +finger ext/flex LLE: ex fix in place +ehl/fhl Labs/Diagnostic Data Labs Test 01/31/25 05:24 01/29/25 16:09 01/29/25 13:31 01/29/25 10:15 Range/Units White Blood Count 13.1 #H 4.4-10.8 10^3/uL Red Blood Count 4.54 4.5-5.90 10^6/uL Hemoglobin 13.3 L 13.5-17.5 g/dL Hematocrit 38.7 L 41.0-53.0 % Mean Corpuscular Volume 85.4 80.0-100.0 fL Mean Corpuscular Hemoglobin 29.4 28.0-32.0 pg Mean Corpuscular Hemoglobin Concent 34.5 32.0-36.0 g/dL Red Cell Distribution Width 14.7 H 11.8-14.3 % Platelet Count 334 140-450 10^3/uL Mean Platelet Volume 7.2 6.9-10.8 fL Neutrophils (%) (Auto) 83.2 H 37.0-80.0 % Lymphocytes (%) (Auto) 12.2 10.0-50.0 % Monocytes (%) (Auto) 4.5 0.0-12.0 % Eosinophils (%) (Auto) 0.0 0.0-7.0 % Basophils (%) (Auto) 0.1 0.0-2.0 % Neutrophils # (Auto) 10.9 H 1.6-8.6 10 ^3/uL Lymphocytes # (Auto) 1.6 0.4-5.4 10 ^3/uL Monocytes # (Auto) 0.6 0-1.3 10 ^3/uL Eosinophils # (Auto) 0 0-0.8 10 ^3/uL Basophils # (Auto) 0 0-0.2 10 ^3/uL Nucleated Red Blood Cells 0.1 % Sodium Level 138 136-145 mmol/L Potassium Level 4.8 3.5-5.1 mmol/L Chloride Level 103 98-107 mmol/L Carbon Dioxide Level 27 20-31 mmol/L Anion Gap 8 5-15 Blood Urea Nitrogen 12 9-23 mg/dL Creatinine 0.82 0.700-1.30 mg/dL Glomerular Filtration Rate Calc 107 >90 mL/min BUN/Creatinine Ratio 14.6 10.0-20.0 Serum Glucose 153 H 74-106 mg/dL Calcium Level 9.5 8.7-10.4 mg/dL Prothrombin Time 11.1 9.3-11.8 sec Prothrombin Time INR 1.05 0.9-1.15 Activated Partial Thromboplast Time 29.5 24.5-34.5 SEC Urine Color Light-yellow Yellow Urine Clarity Clear Clear Urine pH 5.0 5.0-9.0 Urine Specific [place] 1.020 1.001-1.035 Urine Protein Negative Negative Urine Ketones Negative Negative Urine Blood Negative Negative /uL Urine Nitrite Negative Negative Urine Bilirubin Negative Negative Urine Urobilinogen Normal Negative mg/dL Urine Leukocyte Esterase Negative Negative /uL Urine RBC <1 0 - 3 /hpf Urine Microscopic WBC < 1 0-3 /HPF Urine Squamous Epithelial Cells None seen <5 /hpf Urine Bacteria None seen None Seen /hpf Urine Mucus Few None Seen Urine Glucose Normal Normal mg/dL Urine Opiates Screen Neg NEGATIVE Urine Fentanyl Screen Neg NEGATIVE Urine Barbiturates Screen Neg NEGATIVE Urine Phencyclidine Screen Neg NEGATIVE Urine Amphetamines Screen Neg NEGATIVE Urine Benzodiazepines Screen Neg NEGATIVE Urine Cocaine Screen Neg NEGATIVE Urine Cannabinoids Screen Neg NEGATIVE Hemoglobin A1c 5.4 <5.7 % A1C Thyroid Stimulating Hormone (TSH) 1.48 0.55-4.78 uIU/mL Plan/Recommendation 49 yo M with displaced left distal radius fracture/ hx of ORIF left distal tibia 2.5 months ago at [facility] with external hardware in place 1. Plan for open reduction internal fixaton of left distal radius fracture 2. I will have our orthopedic trauma colleagues take off exfix/poss ORIF of left distal tibia fracture as outpatient 3. NPO/IVF 4. pain control Plan discussed with: Patient SAM ROME MD Feb 02, 2025 14:17
--- NOTE | 2025-02-02 14:23 | DVHOP2 ---
Operative Report - 2 Report Details Date: 01/30/25 Preop Diagnosis: Left distal radius fracture - intra-articular Postop Diagnosis: as above Surgeon: Alen Acosta MD Mysql Dba: Russell WHITEHEAD Anesthesiologist: SOPHIA Anesthesia: General Implant: ITS volar distal radius plate - locking/nonlocking screws Consent: The patient was informed of the risks and benefits of the procedure. These include but are not limited to complications of anesthesia, postoperative infection, incomplete relief of symptoms, recurrence of symptoms, damage to blood vessels, nerves and tendons, deep venous thrombosis, pulmonary embolism and possible need for repeat surgery in the future. Estimated Blood Loss: 5 cc Name of Procedure Performed 1. open reduction internal fixation of left distal radius fracture; 2 intra- operative fluoroscopy Procedure Details Procedure Details: DESCRIPTION OF OPERATION: Risks and benefits of the operation were explained to the patient. Alternatives were also discussed with the patient. The patient elected to proceed. Consent for surgery was obtained. The patient was brought to the operating room and placed on the operating table in the supine position. After administration of general anesthesia, the left upper extremity was prepped and draped in the usual sterile fashion. The extremity was exsanguinated with an Esmarch and tourniquet on the upper arm was inflated. An incision was made on the volar aspect of the wrist over the distal flexor carpi radialis tendon. Dissection was taken through the subcutaneous tissues to the tendon sheath. The tendon sheath was incised longitudinally and the tendon was retracted. The floor of the sheath was then incised longitudinally. Distal fascia was also incised. The pronator was exposed. The fracture was seen disrupting a portion of the pronator. The pronator was detached radially and distally and reflected off of the volar surface of the distal radius. Intra- articular comminuted fracture greater than 3 parts. The fracture was then reduced. Manipulation of all fragments produced excellent reduction of the fracture. A 0.062 K-wire was then passed percutaneously to the radial styloid. This pin was then passed across the fracture and engaged the more proximal ulnar cortex of the radius, maintaining reduction of the fracture. A volar distal radial plate was then applied to the bone and positioned under the image intensifier. A proximal screw was then placed to secure the plate. Distally, locking screws were placed through the plate into the distal fragment. Each of these was placed under fluoroscopic guidance. The radial-most screw was placed at the styloid. The ulnar-most screw captured dorsal ulnar corner of the distal radius. The K-wire was then removed. Two additional proximal screws were placed through the plate. Reduction of the fracture was near anatomic. Position of the plate and all screws were visualized in multiple projections with the image intensifier. The fracture was stable with fixation. The wound was irrigated with copious amounts of sterile solution. Pronator was repaired to the radial side with 3-0 PDS suture. The floor of the FCR sheath was also repaired with PDS suture. The subcutaneous tissues and skin were then closed with gita. A dressing was applied. The tourniquet was deflated. Splint was applied. The patient was awoken from anesthesia and taken to the recovery room in stable condition. Condition Good Disposition Still a Patient ALEN ACOSTA MD Feb 02, 2025 14:23
== END 2025-02-01 18:40 | disposition home or self-care (01) | DRG 315 ==
LOC: ER 09:41 → OVERFLOW 13:12 → WEST WING 01-30 15:34
PROVIDERS: ADMIT Internal Medicine; ATTEND Internal Medicine
PROC: 0PSJ04Z Reposition Left Radius with Internal Fixation Device, Open Approach (ICD-10-PCS; principal; 2025-01-30 10:29)
DX: S52.572A Other intraarticular fracture of lower end of left radius, initial encounter for closed fracture (principal); S52.612A Displaced fracture of left ulna styloid process, initial encounter for closed fracture; S82.832A Other fracture of upper and lower end of left fibula, initial encounter for closed fracture; W01.0XXA Fall on same level from slipping, tripping and stumbling without subsequent striking against object, initial encounter; Y93.89 Activity, other specified; Y92.89 Other specified places as the place of occurrence of the external cause; Y99.8 Other external cause status
CPT/HCPCS: 36415; 71045; 73100; 73110; 73610; 76000; 80048; 80307; 81001; 83036; 84443; 85025; 85610; 85730; 97110; 97163; 97530; G0378; J1100; J2003; J2250; J2470; J2704; J3490